=== PATIENT | female | born 2000 | race American Indian/Alaskan Native ===

== ENCOUNTER 2020-11-12 03:13 | Emergency (ER) | payer SELFPAY ==
[2020-11-12 03:19] VITALS: BP 149/89
--- NOTE | 2020-11-12 03:28 | Emergency Department Report ---
Chief Complaint: Skin/Abscess/Foreign Body Stated Complaint: BITTEN BY SOMETHING/THROAT SWOLLEN Time Seen by Provider: 11/12/20 03:23 - HPI History of Present Illness: pimple to right shoulder x 2 days - ROS Review of Systems: no fever no chills, no dizziness no light headedness no n/v, no cp , sob, no abd pain, no muscle pain, small pimple right shoulder - Exam Vital Signs: Vital Signs 11/12/20 03:14 Temperature 98.4 F Pulse Rate 89 Respiratory 18 Rate Blood Pressure 149/89 O2 Sat by Pulse 98 Oximetry Physical Exam: pimple to right shoulder , all other systems normal, pt is a/o x 3, airway is patent, resp even nonlabord, lungs sound clear bilat all lobe, cv: s1 S2, no murmur gallop or rub, abs soft nontender b/s normal, no other rasher, no fever no erythema no drainage , pt is ambulatory with steady gait and nad. MSE screening note: Focused history and physical exam performed. Due to findings the following was ordered: ED Medical Decision Making - Medical Decision Making pt elect to leave do home self care for acnes shoulder, pt will follow up with pcp in 2-3 day and as needed, ED Disposition for MSE Clinical Impression: Skin pimple Disposition: MED SCREENING EXAM-LEFT Is pt being admited?: No Does the pt Need Aspirin: No Condition: Stable Referrals: PRIMARY CARE, [Primary Care Provider] - 3-5 Days Time of Disposition: 03:29
== END 2020-11-12 03:30 | disposition left against medical advice (07) ==
LOC: ED 03:13
DX: M25.511 Pain in right shoulder (principal); Z53.21 Procedure and treatment not carried out due to patient leaving prior to being seen by health care provider

== ENCOUNTER 2021-01-16 09:42 | Emergency (ER) | payer OTHER ==
[2021-01-16 09:54] VITALS: BP 137/97
[2021-01-16 11:23] LABS: Basophils % (Auto) 0.7 % (0.0-1.8); Eosinophils # (Auto) 0.1 K/mm3 (0.0-0.4); Eosinophils % (Auto) 1.3 % (0.0-4.3); Hematocrit 36.6 % (30.3-42.9); Hemoglobin 12.9 gm/dl (10.1-14.3); Lymphocytes # (Auto) 1.8 K/mm3 (1.2-5.4); Mean Corpuscular HGB Conc 35 % (30-34); Mean Corpuscular Volume 89 fl (79-97); Monocytes # (Auto) 0.3 K/mm3 (0.0-0.8); Monocytes % (Auto) 6.4 % (0.0-7.3); Platelet Count 235 K/mm3 (140-440); Red Cell Distribution Width 13.8 % (13.2-15.2)
--- NOTE | 2021-01-16 11:37 | Emergency Department Report ---
ED Shortness of Breath HPI - General Chief Complaint: Dyspnea/Respdistress Stated Complaint: diff breathing Time Seen by Provider: 01/16/21 10:45 Source: patient Mode of arrival: Ambulatory Limitations: No Limitations - History of Present Illness Initial Comments: 20-year-old female presents to the ER today with complaints of shortness of breath. Patient states her symptoms started a couple days ago. She states that she feels like she is not getting enough air into her chest. She also feels like a anterior neck is swollen. She states that she has diffuse anterior chest pain "every now and then". She states that she has had similar symptoms of shortness of breath for a couple months, typically occurs when she gets stressed. She does admit that she has been under a lot of the stress mainly financial and family stress lately. Patient does admit to history of anxiety and depression. She states that she used to be on Vyvanse and a medication (name she does not recall) for her anxiety and depression but she stopped taking it about 2 years ago after she had her daughter. Patient denies any associated cough, itching, rash, sore throat, rhinorrhea, fever or chills, abdominal pain, nausea or vomiting. She denies any calf pain or lower extremity swelling. She states that she smokes weed, and also drinks a few glasses of wine every da y. She denies any SI/HI or hallucinations. She denies any history of heart disease, lung disease, PE or DVT or any significant past history. MD Complaint: shortness of breath -: Gradual, days(s) (2) - Related Data Previous Rx's Medication Instructions Recorded Last Taken Type hydrOXYzine PAMOATE [Vistaril] 25 mg PO Q6HR PRN #30 capsule 01/16/21 Unknown Rx Allergies Allergy/AdvReac Type Severity Reaction Status Date / Time No Known Allergies Allergy Unverified 01/16/21 09:54 ED Review of Systems ROS: Stated complaint: diff breathing Other details as noted in HPI Comment: All other systems reviewed and negative Constitutional: denies: chills, fever Eyes: denies: eye pain, eye discharge, vision change ENT: denies: ear pain, throat pain, dental pain, hearing loss, epistaxis, congestion Respiratory: shortness of breath. denies: cough, orthopnea, SOB with exertion, SOB at rest, stridor, wheezing Cardiovascular: chest pain Endocrine: no symptoms reported Gastrointestinal: denies: abdominal pain, nausea, vomiting, diarrhea, constipation, hematemesis Genitourinary: denies: urgency, dysuria, frequency, hematuria, discharge, abnormal menses, dyspareunia Musculoskeletal: denies: back pain, joint swelling, arthralgia Skin: denies: rash, lesions, change in color, change in hair/nails Neurological: denies: headache, weakness, numbness, paresthesias, confusion, abnormal gait, vertigo Psychiatric: anxiety. denies: auditory hallucinations, visual hallucinations, homicidal thoughts Hematological/Lymphatic: denies: easy bleeding, easy bruising ED Past Medical Hx - Past Medical History Additional medical history: anxiety - Surgical History Past Surgical History?: No - Social History Smoking Status: Never Smoker Substance Use Type: Alcohol, Marijuana - Medications Home Medications: Home Medications Medication Instructions Recorded Confirmed Last Taken Type hydrOXYzine PAMOATE [Vistaril] 25 mg PO Q6HR PRN #30 capsule 01/16/21 Unknown Rx ED Physical Exam - General Limitations: No Limitations General appearance: alert, anxious, other (Tearful) - Head Head exam: Present: atraumatic, normocephalic, normal inspection - Eye Eye exam: Present: normal appearance, PERRL, EOMI Pupils: Present: normal accommodation - ENT ENT exam: Present: normal exam, normal orophraynx, mucous membranes moist - Neck Neck exam: Present: normal inspection, full ROM. Absent: meningismus, lymphadenopathy, thyromegaly - Respiratory Respiratory exam: Present: normal lung sounds bilaterally. Absent: respiratory distress, wheezes, rales, rhonchi, stridor - Cardiovascular Cardiovascular Exam: Present: regular rate, bradycardia, normal heart sounds - GI/Abdominal GI/Abdominal exam: Present: soft. Absent: distended, tenderness, guarding, rebound - Extremities Exam Extremities exam: Present: normal inspection, full ROM. Absent: pedal edema, calf tenderness - Neurological Exam Neurological exam: Present: alert, oriented X3, CN II-XII intact, normal gait - Psychiatric Psychiatric exam: Present: depressed, anxious, other (Tearful). Absent: homicidal ideation, suicidal ideation ED Course Vital Signs 01/16/21 09:53 Temperature 98.0 F Pulse Rate 82 Respiratory 18 Rate Blood Pressure 137/97 [Right] O2 Sat by Pulse 100 Oximetry ED Medical Decision Making - Lab Data Result diagrams: 01/16/21 11:10 01/16/21 11:10 - EKG Data EKG shows normal: sinus rhythm Rate: normal (81) - EKG Data Interpretation: normal EKG - Radiology Data Radiology results: report reviewed Patient: CARLOS FREDERICK#: [id number] : 2000 Acct:[id number] Age/Sex: 20 / F ADM Date: 01/16/21 Loc: ED Attending Dr: Ordering Physician: LIZZIE JACKSON Date of Service: 01/16/21 Procedure(s): XR chest routine 2V Accession Number(s): [id number] cc: LIZZIE JACKSON Fluoro Time In Minutes: CHEST 2 VIEWS INDICATION / CLINICAL INFORMATION: SOB. COMPARISON: None available. FINDINGS: SUPPORT DEVICES: None. HEART / MEDIASTINUM: No significant abnormality. LUNGS / PLEURA: No significant pulmonary or pleural abnormality. No pneumothorax. ADDITIONAL FINDINGS: No significant additional findings. IMPRESSION: 1. No acute findings. Signer Name: Federico Savage MD Signed: 01/16/2021 11:58 AM Workstation Name: [id number] Transcribed By: TL Dictated By: Federico Savage MD Electronically Authenticated By: Federico Savage MD Signed Date/Time: 01/16/21 1158 DD/ 1158 TD/TT: - Medical Decision Making Labs, chest x-ray and EKG reviewed. Nothing acute on work-up today. Patient currently is resting comfortably and has been on her phone. She is not toxic or ill-appearing does not appear to be in any acute pain or respiratory distress. She is neurologically intact with a normal gait in the ER. She appears well-hydrated. Her vital signs are stable. Her history, exam, diagnostic testing and current condition do not suggest that this patient is having acute myocardial infarction, significant arrhythmia, unstable angina( Heart score 0), esophageal perforation, pulmonary embolism (PERC 0, Wells for PE is 0), aortic dissection, pneumothorax, severe pneumonia, sepsis or other significant pathology that would warrant further testing, continued ED treatment, admission or cardiology or other specialist consultation at this time. I suspect at this time that her symptoms may related to anxiety and depression. She is not currently suicidal homicidal. Discussed x-ray, lab and EKG results with patient. Discussed suspected diagnosis with patient. She will be given referral to local primary care doctor for continued treatment and evaluation especially of her anxiety and depression. Patient expressed understanding of instructions and agree with plan. Patient was stable at time of discharge. Critical care attestation.: If time is entered above; I have spent that time in minutes in the direct care of this critically ill patient, excluding procedure time. ED Disposition Clinical Impression: Dyspnea, Anxiety Disposition: DC-01 TO HOME OR SELFCARE Is pt being admited?: No Does the pt Need Aspirin: No Condition: Stable Instructions: Shortness of Breath, Adult, [id number], Managing Anxiety, Adult Additional Instructions: Take the vistaril as prescribed. It is important that you follow up with PCP listed on discharge instructions for continued control of your anxiety and continued evaluation. Return to the ER if your symptoms changes or worsens in any way. Prescriptions: hydrOXYzine PAMOATE [Vistaril] 25 mg PO Q6HR PRN #30 capsule PRN Reason: Anxiety Referrals: ZHANNA BENITEZ MD [Staff Physician] - 3-5 Days Forms: Work/School Release Form(ED) Time of Disposition: 14:05
--- NOTE | 2021-01-16 12:03 | XRay Report ---
CHEST 2 VIEWS INDICATION / CLINICAL INFORMATION: SOB. COMPARISON: None available. FINDINGS: SUPPORT DEVICES: None. HEART / MEDIASTINUM: No significant abnormality. LUNGS / PLEURA: No significant pulmonary or pleural abnormality. No pneumothorax. ADDITIONAL FINDINGS: No significant additional findings. IMPRESSION: 1. No acute findings. Signer Name: Federico Savage MD Signed: 01/16/2021 11:58 AM Workstation Name: [id number]
[2021-01-16 14:01] LABS: Alanine Aminotransferase 11 units/L (7-56); Albumin 3.8 g/dL (3.9-5); Blood Urea Nitrogen 7 mg/dL (7-17); Hemolysis Index 9
[2021-01-16 14:07] LABS: BUN/Creatinine Ratio 10
--- NOTE | 2021-01-20 17:30 | Electrocardiograph Report ---
[facility] Test Date: 2021-01-16 Test Time: 11:03:22 Pat Name: CARLOS FREDERICK Department: Room: Gender: F Cmo & President: PAM : 2000 Requested By: LIZZIE JACKSON Order Number: [id number] Reading MD: Shane Gillette Measurements Intervals [place] Rate: 81 P: 9 NH: 130 QRS: 63 QRSD: 76 T: 6 QT: 368 QTc: 429 Interpretive Statements Sinus rhythm No previous ECG available for comparison Electronically Signed On 01-20-2021 17:29:59 EDT by Shane Gillette
== END 2021-01-16 14:30 | disposition home or self-care (01) ==
LOC: ED 09:42
DX: R06.00 Dyspnea, unspecified (principal); F41.9 Anxiety disorder, unspecified; F12.10 Cannabis abuse, uncomplicated; Z79.899 Other long term (current) drug therapy
CPT/HCPCS: 36415; 71046; 80053; 84484; 84703; 85025; 93005

== ENCOUNTER 2021-06-22 16:01 | Emergency (ER) | payer OTHER ==
[2021-06-22 16:57] VITALS: BP 152/85
[2021-06-22] MEDS ORDERED: ACETAMINOPHEN 500 MG TAB PO ONE (17:32)
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
== END 2021-06-22 18:29 | disposition home or self-care (01) ==
LOC: ED 16:01
DX: R51.9 Headache, unspecified (principal); F41.9 Anxiety disorder, unspecified; F12.90 Cannabis use, unspecified, uncomplicated; Z72.89 Other problems related to lifestyle; Z79.899 Other long term (current) drug therapy; V87.7XXA Person injured in collision between other specified motor vehicles (traffic), initial encounter; Y93.89 Activity, other specified; Y92.488 Other paved roadways as the place of occurrence of the external cause; Y99.8 Other external cause status
CPT/HCPCS: 99282